=== PATIENT | female | born 1980 | race Caucasian/White ===

== ENCOUNTER 2022-03-06 16:01 | Outpatient (CLI) | payer OTHER, SELFPAY ==
--- NOTE | ~2022-03-06 | MM_ITS ---
EXAMINATION: MM screening roni BI w baltazar HISTORY: Screening mammogram TECHNIQUE: Craniocaudal and mediolateral oblique 3-D tomosynthesis images were obtained and synthetic 2-D images were generated. CAD analysis was submitted and interpreted. COMPARISON: None, baseline BREAST PARENCHYMAL COMPOSITION: The breasts are heterogeneously dense, which may obscure small masses . FINDINGS: RIGHT BREAST: There is focal asymmetry in the posterior third of inner breast 8 cm from the nipple. LEFT BREAST: No suspicious mass, calcification, or architectural distortion are identified to suggest malignancy. IMPRESSION: 1. Focal asymmetry of the right breast. 2. Additional mammographic views and possible breast ultrasound are recommended. BI-RADS Category 0: Incomplete: Needs additional imaging evaluation. Reviewed, dictated and finalized at location A. [employer] RECORDS TECHNOLOGY TEACHER IMPRESSION: 1. Focal asymmetry of the right breast. 2. Additional mammographic views and possible breast ultrasound are recommended . BI-RADS Category 0: Incomplete: Needs additional imaging evaluation.
== END 2022-03-06 16:02 | disposition home or self-care (01) ==
PROVIDERS: PCP Family Medicine; Visit Provider Advanced Practice Midwife
DX: Z12.31 Encounter for screening mammogram for malignant neoplasm of breast (principal); R92.8 Other abnormal and inconclusive findings on diagnostic imaging of breast
CPT/HCPCS: 77063; 77067

== ENCOUNTER → 2022-05-23 10:27 | Outpatient (CLI) | payer OTHER, SELFPAY ==
--- NOTE | ~2022-05-23 | MM_ITS ---
EXAMINATION: MM diagnostic roni RT w baltazar HISTORY: Focal asymmetry reported in posterior third of inner right breast 8 cm from nipple on 022 screening mammogram TECHNIQUE: Additional 3-D tomosynthesis images of the right breast were performed and synthetic 2-D i mages were generated. CAD analysis was submitted and interpreted. COMPARISON: 03/06/2022 bilateral screening mammogram FINDINGS: No suspicious mass or architectural distortion is evident. The area of concern reported on the 03/06/2022 screening mammogram in the posterior inner right breast compresses out on spot images. IMPRESSION: 1. No mammographic evidence of malignancy 2. Routine annual mammographic screening is recommended BI-RADS Category 1: Negative Reviewed, dictated and finalized at location A. TING MANAGER
== END ==
PROVIDERS: PCP Advanced Practice Midwife; Visit Provider Advanced Practice Midwife
DX: R92.8 Other abnormal and inconclusive findings on diagnostic imaging of breast (principal)
CPT/HCPCS: 77061; 77065; G0279

== ENCOUNTER 2024-10-09 16:04 | Emergency (ER) | payer OTHER, SELFPAY ==
--- NOTE | ~2024-10-09 | XR_ITS ---
XR wrist RT min 3V Ordering provider: Orlando Gomez APRN History: . Hit Rt wrist against door jamb 4 days ago, gen pain . Comparison: None. FINDINGS: BONES: No acute fracture or dislocation. No definite scaphoid fracture. JOINT SPACES: Normal. SOFT TISSUES: Normal. IMPRESSION: No acute osseous abnormality right wrist. Reviewed, dictated and finalized at location A.
--- NOTE | ~2024-10-09 | XR_ITS ---
XR forearm RT 2V Ordering provider: Orlando Gomez APRN History: . injury 4 days ago, bruising and swelling mid arm . Comparison: None. FINDINGS: BONES: No acute fracture or dislocation. JOINT SPACES: Normal. SOFT TISSUES: Normal. IMPRESSION: No acute osseous abnormality right forearm. Reviewed, dictated and finalized at location A.
[2024-10-09 16:12] VITALS: BP 115/87; PULSE 74; RESP 16; TEMP 36.8; O2SAT 100
--- NOTE | 2024-10-09 16:28 | ED_ITS ---
HPI - Extremity Injury (Upper) General Chief Complaint: Extremity Injury, Upper Stated Complaint: Wrist Pain Time Seen by Provider: 10/09/24 16:20 Source: patient and RN notes reviewed Mode of arrival: ambulatory Limitations: no limitations History of Present Illness HPI narrative: 44-year-old female presents [facility] complaining of right wrist and forearm injury. Patient had approximately 4 days ago she slammed her right wrist/forearm into a door jamb because him injury and bruising to her right wrist/forearm. Since then she continues to have pain. Patient reports some shooting pains into her fingers but denies any numbness or tingling. Patient denies any other injuries, hit her head, loss of consciousness, neck pain, or back pain. Patient has been taking ibuprofen and Tylenol with some relief. Related Data Home Medications ?Medication ?Instructions ?Recorded ?Confirmed ?Last Taken ?Type hydroxyzine HCl 50 mg tablet mg 10/09/24 Unknown History levothyroxine 100 mcg tablet mcg 10/09/24 Unknown History Allergies Allergy/AdvReac Type Severity Reaction Status Date / Time No Known Allergies Allergy Unverified 10/09/24 16:14 Review of Systems Review of Systems: CONSTITUTIONAL: Denies fever, chills, or sweats. EYES: Denies visual changes, redness, or discharge. ENT: Denies rhinorrhea, congestion, sore throat, or otalgia. CARDIOVASCULAR: Denies chest pain, palpitations, or edema. RESPIRATORY: Denies cough or dyspnea. GASTROINTESTINAL: Denies abdominal pain, nausea, vomiting, or diarrhea. GENITOURINARY: Denies dysuria or hematuria. SKIN: Denies rash, wound, or itching. MUSCULOSKELETAL: Denies back pain, joint pain, or myalgia. Positive for her right wrist and forearm injury and swelling and bruising NEUROLOGIC: Denies headache, numbness, or weakness. PSYCHIATRIC: Denies anxiety or depression. All other systems reviewed are negative, except as documented in HPI. [facility] Family History Family History Father Diabetes mellitus Hypertension Family history of irritable bowel syndrome Mother Diabetes mellitus Family history of irritable bowel syndrome Other Family history of type 1 diabetes mellitus Social History Social History Smoking status: Never smoker Alcohol intake: current Comments At the time of my signature, I reviewed and agree with the nursing past medical, surgical, social, and family history. There is no relevant family history pertinent to the patient complaint. Exam Narrative: GENERAL: This is a well-nourished, well-developed adult, in no apparent distress. They are non ill-appearing, nontoxic appearing. HEAD: normocephalic, atraumatic. EYES: Sclera clear/white. Vision is grossly intact. Conjunctiva normal. Ext raocular movement intact. EARS: External ears normal Hearing grossly intact. NOSE: External nose normal THROAT: Mucous membranes moist NECK: Neck supple CARDIOVASCULAR: Regular rate and rhythm RESPIRATORY: Respiratory rate normal, respiratory effort nonlabored, no respiratory distress NEURO: awake, alert, and oriented to person, place and time. There were no obvious focal neurologic abnormalities. EXTREMITIES: Right forearm/right wrist No obvious deformity or redness. Presents swelling to the medial distal side forearm extending into the left wrist. There is pain through full range of motion of right wrist. Tenderness to palpation throughout the wrist and medial distal forearm. Capillary refill less than 3 seconds. Right radial Pulse 2 +palpable. Normal sensation. Neurovascular status intact distal injury. Patient will make a fist, stop sign, thumbs-up sign, and okay sign. Diesel Trailer Mechanic strength 5/5. Radial ulnar nerve distribution intact. BACK: Nontender without deformity. Course Course Emergency Course: Portions of this record may have been created with voice recognition software Level of Care: Express Care Visit Vital Signs Vital signs: Vital Signs Temperature 98.3 F 10/09/24 16:12 Pulse Rate 74 10/09/24 16:12 Respiratory Rate 16 10/09/24 16:12 Blood Pressure 115/87 10/09/24 16:12 Pulse Oximetry 100 10/09/24 16:12 Temperature 98.3 F 10/09/24 16:12 Pulse Rate 74 10/09/24 16:12 Respiratory Rate 16 10/09/24 16:12 Blood Pressure 115/87 10/09/24 16:12 Pulse Oximetry 100 10/09/24 16:12 Reviewed MDM - Extremity Injury (Upper) MDM Narrative Medical decision making narrative: X-ray of right wrist/forearm are negative with any of acute fractures or findings. Discussed physical exam findings. Advised supportive measures and signs/symptoms to go to the ER. Pt is appropriate for outpt treatment and f/u. Differential Diagnosis Differential diagnosis: Likely other (Forearm fracture, wrist fracture, wrist sprain, or forearm contusion) Imaging Data Radiologist's impression: ITS Impressions Wrist X-Ray 10/09/24 16:19 IMPRESSION: No acute osseous abnormality right wrist. ITS Impressions Wrist X-Ray 10/09/24 16:19 IMPRESSION: No acute osseous abnormality right wrist. Forearm X-Ray 10/09/24 16:38 IMPRESSION: No acute osseous abnormality right forearm. Critical Care Time Critical Care Time Critical Care Time: No Discharge Plan Discharge Clinical Impression: Contusion of forearm, right Qualifiers: Encounter type: initial encounter Qualified Code(s): S50.11XA - Contusion of right forearm, initial encounter Injury of right wrist Qualifiers: Encounter type: initial encounter Qualified Code(s): S69.91XA - Unspecified injury of right wrist, hand and finger(s), initial encounter Patient Disposition: Home Condition: Stable Instructions: Wrist Injury (ED), Contusion in Adults (ED) Additional Instructions: The x-ray of your right wrist and right forearm were negative for any fractures or acute findings. It is likely you have a forearm contusion. Rest and elevate the arm Apply ice 15-20 minute intervals several times a day to help with swelling Keep it wrapped with MAUDE Motrin 600mg -800mg every 8 hours, alternate with Tylenol 1000mg every 8 hours as needed Follow up with your primary care provider or an orthopedic 1-2 weeks if pain persists. Patient Language: Zambian Prescriptions: No Action hydroxyzine HCl 50 mg tablet levothyroxine 100 mcg tablet Follow-up/Referrals: Alberto Louis MD [Physician] - PHYSICIAN,HAY STACKER [Primary Care Provider] - Time of Disposition: 16:51
== END 2024-10-09 16:54 | disposition home or self-care (01) ==
DX: S50.11XA Contusion of right forearm, initial encounter (principal); S69.91XA Unspecified injury of right wrist, hand and finger(s), initial encounter; W22.09XA Striking against other stationary object, initial encounter; E06.3 Autoimmune thyroiditis
CPT/HCPCS: 73090; 73110; 99203; G0463

== ENCOUNTER 2024-11-11 15:35 | Outpatient (CLI) | payer OTHER, SELFPAY ==
--- NOTE | ~2024-11-11 | MM_ITS ---
EXAMINATION: MM screening roni BI w baltazar HISTORY: Screening TECHNIQUE: Craniocaudal and mediolateral oblique 3-D tomosynthesis images were obtained and synthetic 2-D images were generated. CAD analysis was submitted and interpreted. COMPARISON: Comparison to multiple prior studies sequentially, with oldest reviewed study dated 07/2021. BREAST PARENCHYMAL COMPOSITION: Not dense: There are scattered areas of fibroglandular density. FINDINGS: There is no evidence of suspicious mass, calcification, or architectural distortion to sugg est malignancy in either breast. There has been no suspicious interval change. IMPRESSION: 1. No mammographic evidence of malignancy. 2. Recommend routine screening mammography in one year. BI-RADS Category 1: Negative Reviewed, dictated and finalized at location A.
== END 2024-11-11 15:36 | disposition home or self-care (01) ==
LOC: ANHIMG 15:37
PROVIDERS: PCP Advanced Practice Midwife; Visit Provider Obstetrics & Gynecology
DX: Z12.31 Encounter for screening mammogram for malignant neoplasm of breast (principal)
CPT/HCPCS: 77063; 77067